=== PATIENT | male | born 1970 | race African-American/Black ===

== ENCOUNTER 2018-10-31 02:33 | Emergency (ER) | payer OTHER ==
[~2018-10-31] VITALS: Ht 165.1 cm; Wt 122.5 kg
[~2018-10-31 02:33] MED LIST: ZOFRAN ODT4 MG ORAL
[2018-10-31 02:50] VITALS: BP 114/70
[2018-10-31] MEDS ORDERED: IBUPROFEN600 MG ORAL (02:50)
--- NOTE | 2018-10-31 02:50 | NUR ---
ED Nurse Note: Patient walked into ED CO toe pain. Left toe had brusing and skin was intact. Patient has no acute distress, on room air, VSS, bed at its lowest position, and x2 bed rails up.
--- NOTE | 2018-10-31 02:54 | Emergency Room Report ---
History of Present Illness General Chief Complaint: Pain Source: Patient Present Illness HPI Patient presents with complaints of evaluation of his left large toe reports that several days ago he jammed the toe against a wall There was a small spot in that area and wanted to make sure it was not infected patient also reports previous problems with his ingrown nail Denies any fevers or chills pain is worse with touch Denies any fevers or chills Allergies: Coded Allergies: PENICILLINS (Unverified Allergy, Unknown, 08/24/14) Patient History Past Medical History: see triage record Pertinent Family History: none Reviewed Nursing Documentation: PMH: Agreed; PSxH: Agreed Nursing Documentation-PMH Hx Cardiac Problems: No - left hand carpel tunnel surgery, hernia umbilical Hx Hypertension: Yes Hx Diabetes: Yes Review of Systems All Other Systems: negative except mentioned in HPI Physical Exam Vital Signs Date Time Temp Pulse Resp B/P (MAP) Pulse Ox O2 Delivery O2 Flow Rate FiO2 10/31/18 02:36 98.2 86 16 114/70 (85) 97 Room Air Sp02 EP Interpretation: reviewed, normal General Appearance: well appearing, no apparent distress Head: normocephalic, atraumatic Eyes: bilateral eye PERRL, bilateral eye EOMI ENT: normal pharynx Neck: supple Respiratory: no respiratory distress, no retraction, no accessory muscle use Musculoskeletal: other - Left large toe on the medial aspect small hematoma, no obvious erythema or swelling no obvious paronychia Neurologic: alert, oriented x3, responsive Skin: other - As above Lymphatic: no adenopathy Medical Decision Making Diagnostic Impression: Primary Impression: hematoma ER Course Given the history and examination I did recommend imaging of the large toe however patient reports that he does not feel like it is broken The area in question appears to be a small hematoma which is essentially resolving does not appear to be consistent with Gangrenous findings or infectious pathology patient was provided with Podiatry specialty follow-up and will return with any changes or concern Last Vital Signs Date Time Temp Pulse Resp B/P (MAP) Pulse Ox O2 Delivery O2 Flow Rate FiO2 10/31/18 02:36 98.2 86 16 114/70 (85) 97 Room Air Status: unchanged Disposition: HOME, SELF-CARE Condition: Stable Scripts Ibuprofen* (MOTRIN*) 600 Mg Tablet 600 MG ORAL Q8H PRN for For Pain, #12 TAB 0 Refills Prov: Brenda Lara DO 10/31/18 Referrals: [facility],REFERRING (PCP) PAULA BAEZA M.D. Patient Instructions: Hematoma, Fnyt-ft-Thus Additional Instructions: Patient is provided with the discharge instructions notified to follow up with primary doctor in the next 2-3 days otherwise return to the er with any worsening symptoms. Please note that this report is being documented using DRAGON technology. This can lead to erroneous entry secondary to incorrect interpretation by the dictating instrument. Brenda Lara DO Oct 31, 2018 02:54
[2018-10-31 03:00] VITALS: BP 114/70
--- NOTE | 2018-10-31 03:00 | NUR ---
ER DISCHARGE NOTE: Patient is cleared to be discharged per ERMD, pt is aox4, on room air, with stable vital signs. pt was given dc and prescription instructions, pt was able to verbalize understanding, pt id band removed. pt is able to ambulate with steady gait. pt took all belongings.
[2018-10-31 03:01] VITALS: BP 114/70
== END 2018-10-31 03:00 | disposition home or self-care (01) ==
LOC: EMR 02:45
DX: S90.112A Contusion of left great toe without damage to nail, initial encounter (principal); W22.01XA Walked into wall, initial encounter; Y92.9 Unspecified place or not applicable; E11.9 Type 2 diabetes mellitus without complications; I10 Essential (primary) hypertension; Z88.0 Allergy status to penicillin
CPT/HCPCS: 82962; 99282